=== PATIENT | male | born 1980 | race African-American/Black ===

== ENCOUNTER 2018-08-11 23:11 | Emergency (ER) | payer BC ==
[2018-08-11] MEDS ORDERED: diphenhydrAMINE 50 MG/ML 1 ML VIAL IVP STA (23:32)
[2018-08-11] MEDS ORDERED: methylPREDNISolone SOD SUCCI 125 MG/2 ML VIAL IV STA (23:32)
[2018-08-11] MEDS ORDERED: FAMOTIDINE 20 MG/2 ML VIAL IV STA (23:32)
--- NOTE | 2018-08-12 01:37 | ED ---
Allergic Reaction HPI - General Source: patient Mode of arrival: ambulatory Limitations: no limitations <Hortensia Chaudhary - Last Filed: 08/12/18 03:32> <Jenn Snyder - Last Filed: 08/14/18 08:09> - General Chief complaint: Allergic Reaction Stated complaint: allergic reaction Time Seen by Provider: 08/11/18 23:27 - History of Present Illness Initial Comments: 38-year-old male patient presents to the emergency department today for evaluation of throat swelling and facial swelling after eating ribs off of a fire with pecan wood chips. Patient states that this is the second time today that this has happened after eating the ribs. Patient states this time his throat was so swollen it very difficult to swallow. Denies any difficulty breathing. Denies any lip or tongue swelling. Patient denies any history of similar symptoms. Denies any known alleriges. Patient states he does take blood pressure medication however is unable to recall the name. He believes it begins with the letter T. patient denies any abdominal pain, nausea, or vomiting with this. Denies any headache, blurred vision or double vision. Patient denies any recent rash, chest pain, diarrhea, constipation, back pain, numbness, tingling, dizziness, weakness, hematuria, dysuria, urinary urgency, urinary frequency, headache, visual changes, or any other complaints. (Hortensia Chaudhary) - Related Data Previous Rx's Medication Instructions Recorded Amoxic-Pot Clav 875-125Mg 1 tab PO Q12HR #20 tablet 08/12/18 [Augmentin 875-125] Allergies Allergy/AdvReac Type Severity Reaction Status Date / Time pecan nut Allergy Swelling Verified 08/11/18 23:21 Review of Systems ROS Other: All systems not noted in ROS Statement are negative. <Hortensia Chaudhary - Last Filed: 08/12/18 03:32> ROS Other: All systems not noted in ROS Statement are negative. <Jenn Snyder - Last Filed: 08/14/18 08:09> ROS Statement: Those systems with pertinent positive or pertinent negative responses have been documented in the HPI. Past Medical History Past Medical History: Hypertension Past Surgical History: No Surgical Hx Reported Past Psychological History: Anxiety Smoking Status: Current every day smoker Past Alcohol Use History: Occasional Past Drug Use History: None Reported <Hortensia Chaudhary - Last Filed: 08/12/18 03:32> General Exam Limitations: no limitations General appearance: alert, in no apparent distress, other (This is a well-dev eloped, well-nourished adult male patient in no acute distress. Vital signs upon presentation are temperature 98.4F. Pulse 72, respirations 18, blood pressure 162/93, pulse ox 99% on room air) Eye exam: Present: normal appearance, PERRL, EOMI. Absent: scleral icterus, conjunctival injection, periorbital swelling ENT exam: Present: normal oropharynx, mucous membranes moist. Absent: normal exam Neck exam: Present: other (Bilateral submandibular swelling). Absent: normal inspection, tenderness, meningismus, lymphadenopathy Respiratory exam: Present: normal lung sounds bilaterally. Absent: respiratory distress, wheezes, rales, rhonchi, stridor Cardiovascular Exam: Present: regular rate, normal rhythm, normal heart sounds. Absent: systolic murmur, diastolic murmur, rubs, gallop, clicks GI/Abdominal exam: Present: soft, normal bowel sounds. Absent: distended, tenderness, guarding, rebound, rigid Neurological exam: Present: alert, oriented X3, CN II-XII intact Psychiatric exam: Present: normal affect, normal mood Skin exam: Present: warm, dry, intact, normal color. Absent: rash <Hortensia Chaudhary M - Last Filed: 08/12/18 03:32> Course <Jenn Snyder P - Last Filed: 08/14/18 08:09> Vital Signs 08/11/18 08/12/18 08/12/18 23:18 00:14 00:15 Temperature 98.4 F Pulse Rate 72 72 Respiratory 18 15 18 Rate Blood Pressure 162/93 O2 Sat by Pulse 99 97 Oximetry 08/12/18 08/12/18 08/12/18 00:57 01:53 03:38 Temperature 97.8 F Pulse Rate 81 78 80 Respiratory 18 16 16 Rate Blood Pressure 134/68 132/92 O2 Sat by Pulse 98 98 97 Oximetry - Reevaluation(s) Reevaluation #1: Patient was reevaluated he reports his symptoms have resolved completely. At the time of my reevaluation patient reports that he only feels hungry and his only complaint is that he hasn't been allowed to eat. On exam the patient has no oropharyngeal edema, there is no uvular edema or placement. There is no angioedema of the lips or tongue. Patient has a normal voice clear speech. Patient repeatedly asking to eat. I will give the patient food and drink if he is able to eat and drink without difficulty I feel he was stable for discharge home. 08/12/18 03:11 (Jenn Snyder) Medical Decision Making <Hortensia Chaudhary - Last Filed: 08/12/18 03:32> <Jenn Snyder - Last Filed: 08/14/18 08:09> - Medical Decision Making 38-year-old male patient presented to the emergency department today for evaluation of swollen neck felt to be an ALLERGIC reaction. Physical examination did reveal bilateral submandibular swelling. Patient was given IV Solu-Medrol, Pepcid, and Benadryl here in the department. Upon reevaluation he did not report much improvement of symptoms. Plan was to admit the patient however he did have decreased swelling while waiting for a bed. He then requested to be discharged home. He did have a sandwich and drank to ensure he tolerated swallowing and oral intake. After eating patient had increase in swelling once again. Given this finding and history of the neck swelling after eating twice earlier in the day it is felt that this is salivary gland related. We did discuss diagnosis of sialoadenitis and will be started on Augmentin. He is instructed to obtain lemon drops to increase salivation. He'll be discharged to follow-up with research methods instructor as soon as possibly is instructed to follow-up with his primary care physician for recheck in 1-2 days. Return parameters discussed in detail. He verbalizes understanding and agrees with this plan. (Hortensia Chaudhary) I personally saw and evaluated the patient. Patient with no angioedema, normal uvula, normal phonation. Patient was given a by mouth challenge and sub sequently developed some more discomfort seems to be in the submandibular salivary glands, treatment for this was discussed with the patient and he was discharged home in stable condition. (Jenn Snyder) Disposition Is patient prescribed a controlled substance at d/c from ED?: No Time of Disposition: 03:20 <Hortensia Chaudhary - Last Filed: 08/12/18 03:32> Is patient prescribed a controlled substance at d/c from ED?: No <ClaudioJenn P - Last Filed: 08/14/18 08:09> Clinical Impression: Sialoadenitis Disposition: HOME SELF-CARE Condition: Stable Instructions (If sedation given, give patient instructions): Sialoadenitis (ED) Additional Instructions: Obtain lemon drop candy from the store and suck to stimulate salivation. Complete antibiotic prescription in full. Return to the emergency department immediately for any new, worsening, or concerning symptoms. Prescriptions: Amoxic-Pot Clav 875-125Mg [Augmentin 875-125] 1 tab PO Q12HR #20 tablet Referrals: Genaro Fields MD [Primary Care Provider] - 1-2 days Jaden Torres MD [STAFF PHYSICIAN] - 1-2 days
[2018-08-12 01:55] VITALS: RESP 16
[2018-08-12] MEDS ORDERED: NALOXONE 0.4 MG/ML 1 ML VIAL IV PRN (02:32)
[2018-08-12] MEDS ORDERED: diphenhydrAMINE 50 MG/ML 1 ML VIAL IVP PRN (02:34)
[2018-08-12] MEDS ORDERED: AMOXIC-POT CLAV 875MG STARTER 2 EACH TABLET PO STA (03:20)
[2018-08-12 03:41] VITALS: BP 132/92; PULSE 80; TEMP 97.8
[2018-08-12] MEDS ORDERED: methylPREDNISolone SOD SUCCI 125 MG/2 ML VIAL IV SCH (06:00)
== END 2018-08-12 03:30 | disposition home or self-care (01) ==
LOC: EC 23:11
DX: K11.20 Sialoadenitis, unspecified (principal); F17.200 Nicotine dependence, unspecified, uncomplicated; Z91.018 Allergy to other foods
CPT/HCPCS: 99283; 96374; 96375 ×2; J1200; J2930